=== PATIENT | female | born 1990 | race Caucasian/White ===

== ENCOUNTER 2022-06-18 22:42 | Observation (INO) | payer OTHER, SELFPAY ==
--- NOTE | ~2022-06-18 | CT_ITS ---
EXAMINATION: CT abdomen pelvis wo con DATE: 06/18/2022 23:58 INDICATION: Upper abdominal and right flank pain TECHNIQUE: Computed tomography (CT) of the abdomen and pelvis was performed without intravenous contr ast. The dose-length product (DLP) was 718.87 mGy-cm. Automated exposure control and iterative recons truction technique were employed. COMPARISON: None FINDINGS: The lung bases are clear. The heart size is normal. The gallbladder is surgically absent. T he liver, spleen, pancreas, and adrenal glands are normal. Nonobstructing stones of the right kidney measure 2 mm and 3 mm. The left kidney is unremarkable. No stones are present in the ureters or bladd er. There is no hydronephrosis or hydroureter. No pathologically enlarged abdominal or pelvic lymph n odes are identified. There is no free intraperitoneal gas or evidence of bowel obstruction. The appen [place] is normal. IMPRESSION: 1. Nonobstructing right nephrolithiasis. Reviewed, dictated and finalized at location B. [facility]
[2022-06-18 22:44] VITALS: BP 107/75; PULSE 73; RESP 20; TEMP 36; O2SAT 100
[2022-06-18] MEDS: SODIUM CHLORIDE 0.9% IV 1,000 ML 999 ML IV CONT (23:09)
[2022-06-18] MEDS: PANTOPRAZOLE SODIUM IV 40 MG VIAL IV PUSH (23:10)
--- NOTE | 2022-06-18 23:12 | PC.NURSE ---
ERP orders 4mg of zofran IV push. Pt just received 4mg of Zofran by EMS just prior to arrival and RN reported to ERP asking to hold the medication. ERP agreed. Pt also states that her pain is starting to reduce and rates the pain at 4/10.
[2022-06-18 23:30] VITALS: BP 112/75; PULSE 70; RESP 16; O2SAT 100
[2022-06-18 23:30] LABS: Basophils Absolute Auto 0.04 K/mm3 (0.00-0.10); Basophils Percent Auto 0.3 % (0.0-1.0); Eosinophils Percent Auto 0.9 % (1.0-6.0); Hematocrit 38.1 % (35.0-49.0); Hemoglobin 13.6 g/dL (12.0-15.0); Immature Granulocyte Absolute 0.04 K/mm3 (0.00-0.00); Immature Granulocyte Percent A 0.3 % (0.0-0.0); Lymphocytes Absolute Auto 2.32 K/mm3 (1.10-4.50); Mean Corpuscular HGB Conc 35.7 g/dL (32.0-36.0); Mean Corpuscular Hemoglobin 32.2 pg (27.0-31.0); Mean Corpuscular Volume 90.1 fL (78.0-102.0); Mean Platelet Volume 10.1 fl (9.2-11.8); Neutrophils Absolute Auto 8.4 K/mm3 (1.7-7.2); Neutrophils Percent Auto 72.5 % (50.0-70.0); Platelet Count Result 196 K/mm3 (150-420); Red Blood Count 4.23 M/mm3 (4.20-5.40); Red Cell Distribution Width 12.1 % (11.6-14.4); White Blood Count 11.6 K/mm3 (4.8-10.8)
--- NOTE | 2022-06-18 23:34 | PC.NURSE ---
Pt states that she has a history of her gallbladder surgery in 2019. Pt states that she had it removed and that pain feels similar to that episode.
[2022-06-18 23:42] LABS: SPREG INTERNAL CONTROL Positive; Serum Qual hCG Negative
[2022-06-18 23:46] LABS: Alanine Aminotransferase 57 U/L (14-59); Albumin Level 3.5 g/dL (3.4-5.0); Alkaline Phosphatase 58 U/L (46-116); Anion Gap 10 mmol/L (8-16); Aspartate Amino Transferase 80 U/L (15-37); Bilirubin,Total 0.6 mg/dL (0.00-1.00); Blood Urea Nitrogen 19 mg/dL (7-18); Calcium 8.2 mg/dL (8.5-10.1); Carbon Dioxide 24 mmol/L (21-32); Chloride 104 mmol/L (98-108); Estimated CRCL calculation 72 ml/min; Estimated Glomerular Filt Rate 60; Glucose 111 mg/dL (70-99); Lipase 588 U/L (73-393); Osmolality Calculated 289 mOsm/kg (285-295); Potassium 3.5 mmol/L (3.5-5.1); Sodium 138 mmol/L (136-145); Total Protein 6.4 g/dL (6.4-8.2)
[2022-06-18 23:51] LABS: Add Urine Microscopic? YES; Appearance Urine Clear (Clear); Bilirubin Urine Negative (Negative); Blood Urine Negative (Negative); Color Urine Yellow (Yellow); Glucose Urine UA Negative (Negative); Ketones Urine Trace (Negative); Leukocyte Esterase Ur Negative LEU/UL (Negative); Nitrate Urine Negative (Negative); Protein Urine Negative (Negative)
[2022-06-18 23:51] LABS: Lactic Acid Reflex 2.8 mmol/L (0.4-2.0)
[2022-06-18 23:57] LABS: Bacteria Urine Trace /hpf; Mucus Urine Few /lpf; RBC Urine 0-2 /hpf (0-2); Squamous Epithelial Cell Urine Few /hpf (Few); WBC Urine 0-3 /hpf (0-3)
[2022-06-19 00:27] VITALS: BP 106/74; PULSE 83; RESP 16; O2SAT 100
--- NOTE | 2022-06-19 01:08 | PC.NURSE ---
Pt was educated by ERP for the possibility of an admission to the floor. After discussing, pt has decided to agree with the admission. Pt did ask for food by was educated that pt would by NPO at this time. Reported to ERP.
--- NOTE | 2022-06-19 01:54 | ED.ABDPAIN ---
HPI - Abdominal Pain General Chief Complaint: Abdominal Pain Stated Complaint: ambulance Time Seen by Provider: 06/18/22 22:45 Source: patient, family and RN notes reviewed Mode of arrival: ambulatory Limitations: no limitations History of Present Illness MD elicited complaint: abdominal pain Pertinent past history: none Onset (ago): hour(s) (4) Pain Consistency: constant Location: epigastric Severity: mild Pain scale (0-10): 6 Quality: cramping and aching Radiation: back Migration to: no migration Exacerbating factors: nothing Relieving factors: nothing Context: confirms recent antibiotic use Associated symptoms: nausea and vomiting Treatments prior to arrival: prescription analgesics Related Data Patient : No Home Medications Medication Instructions Recorded Confirmed acetaminophen 300 mg-codeine 60 mg 1 tablet PO DIRECTED 06/18/22 06/18/22 tablet clindamycin HCl 300 mg capsule 300 mg PO DIRECTED 06/18/22 06/18/22 Allergies Allergy/AdvReac Type Severity Reaction Status Date / Time Penicillins Allergy Intermediate Unknown Verified 06/18/22 23:00 Review of Systems Review of Systems: All systems reviewed & are unremarkable except as noted in HPI and below Constitutional: Constitutional: Reports no additional constitutional complaints Eyes: Eyes: Reports no additional eye complaints ENT: Reports system reviewed and no additional complaints, except as documented Cardiovascular: Cardiovascular: Reports no additional cardiovascular complaints Respiratory: Respiratory: Reports no additional respiratory complaints Gastrointestinal: Gastrointestinal: Reports abdominal pain, Reports nausea and Reports vomiting Genitourinary: Genitourinary: Reports no additional female genitourinary complaints Musculoskeletal: Musculoskeletal: Reports no additional musculoskeletal complaints Integumentary/Breasts: Skin/Breast: Reports system reviewed and no additional complaints, except as docu Neurologic: Reports system reviewed and no additional complaints, except as documented Psychiatric: Psychiatric: Reports no additional psychiatric complaints Endocrine: Endocrine: Reports no additional endocrine complaints Hematologic/Lymphatic: Hematologic/Lymphatic: Reports no additional hematologic/lymphatic complaints Allergic/Immunologic: Allergic/Immunologic: Reports no additional allergic/immunologic complaints [facility] Past Medical History Medical History Nicotine dependence Overweight Pancreatitis Surgical History Surgical History History of laparoscopic cholecystectomy Family History Family History Father Acute myocardial infarction Social History Social History Smoking status: Former smoker Tobacco type: cigarettes Exam Const: General: no acute distress and well nourished; No healthy appearing Nutritional Appearance: well nourished Orientation/consciousness: patient oriented x3 Limitations: no limitations HENMT: Head: normal to inspection Ears: external ears normal, TM's normal bilaterally and EAC's normal Face/Nose/Sinus: Normal external nose present, Normal nares present, normal facial exam and sinuses nontender Face and sinus: normal facial exam and sinuses nontender Mouth: Yes Normal oral and palatal mucosa present and Yes moist mucous membranes Teeth and gingiva: dentition normal Throat: posterior oropharynx normal Eyes: Conjunctivae: conjunctivae normal Pupils: Equal, round and reactive pupils present EOM: EOMs intact bilaterally Neck: Neck: normal visual inspection, no lymphadenopathy and no meningeal signs Chest: Chest palpation & inspection: normal inspection of the chest Resp: Effort & Inspection: normal respiratory effort Auscultation: clear to a
[2022-06-19 02:07] VITALS: BP 122/82; PULSE 83; RESP 16; TEMP 36.3; O2SAT 100
[2022-06-19 02:27] VITALS: BMI 35.2
--- NOTE | 2022-06-19 02:30 | ADMGEN ---
This patient, Bernie Hernandez, was admitted to 2nd Floor Room 208-2. Patient/family oriented to hospital policies and general routines including ID bracelet, bed and alarms, visiting hours, pain management, procedures, bathroom and other care routines, personal items, smoking policy, room service/diet, and visiting hours. Information on how to activate the Rapid Response Team has been discussed. Patient/Family are encouraged to report perceived risks to care and to ask questions if they do not understand what they are told or what they should do.
[2022-06-19 02:53] LABS: Reflex Lactic Acid Yes or No Add Lactic
[2022-06-19 03:00] VITALS: BP 106/68; PULSE 79; RESP 18; TEMP 36.6; O2SAT 99
[2022-06-19] MEDS: SODIUM CHLORIDE 0.9% IV 1,000 ML 125 ML IV CONT (03:28)
[2022-06-19] MEDS: MORPHINE SULFATE (*CRX) 2 MG/ML INJ IV PUSH (03:39)
[2022-06-19 05:22] LABS: Basophils Absolute Auto 0.02 K/mm3 (0.00-0.10); Basophils Percent Auto 0.2 % (0.0-1.0); Eosinophils Absolute Auto 0.07 K/mm3 (0.02-0.50); Eosinophils Percent Auto 0.8 % (1.0-6.0); Hematocrit 39.3 % (35.0-49.0); Hemoglobin 13.7 g/dL (12.0-15.0); Immature Granulocyte Absolute 0.03 K/mm3 (0.00-0.00); Immature Granulocyte Percent A 0.3 % (0.0-0.0); Lymphocytes Absolute Auto 2.05 K/mm3 (1.10-4.50); Lymphocytes Percent Auto 22.6 % (18.0-42.0); Mean Corpuscular HGB Conc 34.9 g/dL (32.0-36.0); Mean Corpuscular Hemoglobin 31.8 pg (27.0-31.0); Mean Corpuscular Volume 91.2 fL (78.0-102.0); Mean Platelet Volume 10.4 fl (9.2-11.8); Monocytes Absolute Auto 0.68 K/mm3 (0.10-0.90); Monocytes Percent Auto 7.5 % (2.0-11.0); Neutrophils Absolute Auto 6.2 K/mm3 (1.7-7.2); Neutrophils Percent Auto 68.6 % (50.0-70.0); Platelet Count Result 204 K/mm3 (150-420); Red Blood Count 4.31 M/mm3 (4.20-5.40); Red Cell Distribution Width 12.1 % (11.6-14.4); White Blood Count 9.1 K/mm3 (4.8-10.8)
[2022-06-19] MEDS: CLINDAMYCIN HCL 150 MG CAP 300 MG PO (06:02)
[2022-06-19 06:22] LABS: Lactic Acid 1.3 mmol/L (0.4-2.0)
[2022-06-19 08:00] VITALS: BP 94/56; PULSE 64; RESP 16; TEMP 36.2; O2SAT 98
[2022-06-19 08:20] LABS: Alanine Aminotransferase 426 U/L (14-59); Albumin Level 3.5 g/dL (3.4-5.0); Alkaline Phosphatase 79 U/L (46-116); Anion Gap 8 mmol/L (8-16); Aspartate Amino Transferase 444 U/L (15-37); Bilirubin,Total 0.6 mg/dL (0.00-1.00); Blood Urea Nitrogen 15 mg/dL (7-18); Carbon Dioxide 24 mmol/L (21-32); Chloride 108 mmol/L (98-108); Estimated CRCL calculation 92 ml/min; Estimated Glomerular Filt Rate > 60; Glucose 119 mg/dL (70-99); Osmolality Calculated 291 mOsm/kg (285-295); Potassium 4.2 mmol/L (3.5-5.1); Sodium 140 mmol/L (136-145); Total Protein 6.6 g/dL (6.4-8.2)
[2022-06-19] MEDS: lisinopriL 20 MG TABLET PO (09:05)
--- NOTE | 2022-06-19 10:27 | PM.SD2 ---
Same Day Admit/Disch: HPI History of Present Illness Chief complaint: ACUTE PANCREATITIS Narrative: Bernie Hernandez is a 31 year old female Chief Complaint: Abdominal Pain Stated Complaint: ambulance Time Seen by Provider: 06/18/22 22:45 Source: patient, family and RN notes reviewed Mode of arrival: ambulatory Limitations: no limitations History of Present Illness MD elicited complaint: abdominal pain Pertinent past history: none Onset (ago): hour(s) (4) Pain Consistency: constant Location: epigastric Severity: mild Pain scale (0-10): 6 Quality: cramping and aching Radiation: back Migration to: no migration Exacerbating factors: nothing Relieving factors: nothing Context: confirms recent antibiotic use Associated symptoms: nausea and vomiting Treatments prior to arrival: prescription analgesics Related Data Patient : No Home Medications PMFSH Past Medical History Medical History Nicotine dependence Overweight Pancreatitis Surgical History Surgical History History of laparoscopic cholecystectomy Family History Family History Father Acute myocardial infarction Social History Social History Years smoked: 15 Smoking status: Current every day smoker Tobacco type: cigarettes Alcohol intake: current Drinks per week: 10 Substance use: current Substance use type: marijuana Last use: 06/18/2022 Lack of Transportation: No Lack of Food: Often True Current Housing: I Have Housing Concerned About Future Housing: No Difficulty Paying Gas/Electric Bills: YES Difficulty Paying for Meds: No Currently Unemployed: No Education: Associate Degree Difficulty w/ Childcare or Family Care: No Spiritual care concerns: No Same Day Admit/Disch: Med Pre-admit Medications Home Medications Medication Instructions Recorded Confirmed Type lisinopril 20 mg tablet 20 mg PO DAILY #90 tabs 06/03/22 06/18/22 Rx acetaminophen 300 mg-codeine 60 mg 1 tablet PO DIRECTED 06/18/22 06/18/22 History tablet clindamycin HCl 300 mg capsule 300 mg PO DIRECTED 06/18/22 06/18/22 History ondansetron 4 mg disintegrating 4 mg PO Q8H PRN nausea and 06/19/22 Rx tablet vomiting #10 tabs tramadol 50 mg tablet 50 mg PO Q6H PRN pain #14 tabs 06/19/22 Rx Exam Narrative: GENERAL:Well-appearing, well-nourished, and in no acute distress. HEAD:Normocephalic, atraumatic. EYES: PERRLA ENT: Nares clear, no rhinorrhea or epistaxis. Mucous membranes moist. CHEST: Clear to auscultation. No respiratory distress. HEART: Regular rate and rhythm. . Normal peripheral pulses. ABDOMEN: Soft, nontender, nondistended, normal active bowel sounds. EXTREMITIES: Normal range of motion. No edema. SKIN: Warm, dry, no rash. NEURO: No focal deficits. Alert and oriented x3. no pain or nausea noted at this time DS: Data Data Completed and Pending Labs on day of discharge: Labs from last 24 hours 06/19/22 06/19/22 06/19/22 04:56 04:56 04:56 WBC 9.1 RBC 4.31 Hgb 13.7 Hct 39.3 MCV 91.2 MCH 31.8 H MCHC 34.9 RDW 12.1 Plt Count 204 MPV 10.4 Immature Gran % (Auto) 0.3 H Neut % (Auto) 68.6 Lymph % (Auto) 22.6 [place] % (Auto) 7.5 Eos % (Auto) 0.8 L Baso % (Auto) 0.2 Lymph # (Auto) 2.05 [place] # (Auto) 0.68 Eos # (Auto) 0.07 Baso # (Auto) 0.02 Abs Immat Gran (auto) 0.03 H Absolute Neuts (auto) 6.2 Absolute Nucleated RBC 0.00 Nucleated RBC % 0.0 Sodium 140 Potassium 4.2 Chloride 108 Carbon Dioxide 24 Anion Gap 8 BUN 15 Creatinine 0.84 Estim Creat Clear Calc 92 Estimated GFR > 60 Glucose 119 H Calculated Osmolality 291 Lactic Acid 1.3 Calcium 8.0 L Total Bilirubin
--- NOTE | 2022-06-19 11:47 | PC.NURSE ---
Pt discharged to home. Denies N/V or abdominal pain. Pt has drank apple juice and water with out difficulty. Pt instructed regarding medications, diet and follow up appointment with her PCP. Pt taken by WC to family car and assisted into the vehicle.
--- NOTE | 2022-06-24 09:32 | PC.NURSE ---
Unable to contact for discharge call back.
== END 2022-06-19 11:30 | disposition home or self-care (01) ==
LOC: CHSED 23:14 → CHS2ND 06-19 02:10
PROVIDERS: Nurse Practitioner Family; Admitting Provider Internal Medicine; Emergency Provider Emergency Medicine; Visit Provider Internal Medicine
DX: K85.90 Acute pancreatitis without necrosis or infection, unspecified (principal); F17.210 Nicotine dependence, cigarettes, uncomplicated; Z90.49 Acquired absence of other specified parts of digestive tract
CPT/HCPCS: 36415; 74176; 80053; 81001; 83605; 83690; 84703; 85025; 96361; 96374; 96375; 99285; A9270; C9113; G0378; G0379; J2270; J7030

== ENCOUNTER 2023-07-25 09:18 | Outpatient (CLI) | payer BC, SELFPAY ==
[2023-07-25 09:37] LABS: Basophils Absolute Auto 0.04 K/mm3 (0.00-0.10); Basophils Percent Auto 0.7 % (0.0-1.0); Eosinophils Absolute Auto 0.07 K/mm3 (0.02-0.50); Eosinophils Percent Auto 1.2 % (1.0-6.0); Hematocrit 43.1 % (35.0-49.0); Hemoglobin 14.9 g/dL (12.0-15.0); Immature Granulocyte Absolute 0.02 K/mm3 (0.00-0.00); Immature Granulocyte Percent A 0.3 % (0.0-0.0); Lymphocytes Absolute Auto 1.59 K/mm3 (1.10-4.50); Lymphocytes Percent Auto 26.2 % (18.0-42.0); Mean Corpuscular HGB Conc 34.6 g/dL (32.0-36.0); Mean Corpuscular Hemoglobin 32.2 pg (27.0-31.0); Mean Corpuscular Volume 93.1 fL (78.0-102.0); Mean Platelet Volume 9.7 fl (9.2-11.8); Monocytes Absolute Auto 0.47 K/mm3 (0.10-0.90); Monocytes Percent Auto 7.8 % (2.0-11.0); Neutrophils Absolute Auto 3.9 K/mm3 (1.7-7.2); Neutrophils Percent Auto 63.8 % (50.0-70.0); Platelet Count Result 209 K/mm3 (150-420); Red Blood Count 4.63 M/mm3 (4.20-5.40); Red Cell Distribution Width 12.7 % (11.6-14.4); White Blood Count 6.1 K/mm3 (4.8-10.8)
[2023-07-25 10:06] LABS: Alanine Aminotransferase 24 U/L (14-59); Albumin Level 3.9 g/dL (3.4-5.0); Alkaline Phosphatase 51 U/L (46-116); Anion Gap 4 mmol/L (8-16); Aspartate Amino Transferase 10 U/L (15-37); Bilirubin,Total 0.4 mg/dL (0.00-1.00); Blood Urea Nitrogen 15 mg/dL (7-18); Carbon Dioxide 32 mmol/L (21-32); Chloride 102 mmol/L (98-108); Estimated Glomerular Filt Rate > 60; Glucose 93 mg/dL (70-99); Lipase 30 U/L (16-77); Osmolality Calculated 286 mOsm/kg (285-295); Potassium 4.4 mmol/L (3.5-5.1); Sodium 138 mmol/L (136-145); Total Protein 6.8 g/dL (6.4-8.2)
[2023-07-25 10:16] LABS: CRP < 0.5 mg/dL (0.0-0.9)
[2023-07-27 21:58] LABS: H pylori, Urea Breath NOT DETECTED (NOT DETECTED)
== END 2023-07-25 09:19 | disposition home or self-care (01) ==
LOC: CHSLAB 09:19
PROVIDERS: PCP Family Medicine; Visit Provider Family Medicine
DX: R10.9 Unspecified abdominal pain (principal); K85.90 Acute pancreatitis without necrosis or infection, unspecified
CPT/HCPCS: 36415; 80053; 83013; 83690; 85025; 86140

== ENCOUNTER 2024-10-06 22:19 | Emergency (ER) | payer BC, OTHER, SELFPAY ==
--- OUTSIDE RECORDS SUMMARY | 2024-10-06 22:21 | XMS_ITS | Clinical Summary ---
Author Organization [facility] Address [address] [place] [address] Care Team Providers Care Embroidery Cutter Name Role Phone Maida Marie MD Primary Care Provider [phone] Source Comments [facility],non-owned Affiliates and Associated Physician Practices is amultiple site organization consisting of ambulatory clinics and hospital sitesin [place], [place], [place] and [place]. This disclosure is being madepursuant to the Care Everywhere program and may not contain all information available regarding this patient. Last updated 18.[facility] Allergies Active Allergy Reactions Criticality Noted Date Comments Latex Rash Medium 07/29/2018 Penicillins Rash Medium 07/29/2018 Dx in childhood Medications * Be aware that medications may not be up to date on this document. Alwaysverify current medications with the patient. Medication Sig Dispensed Refills Start Date End Date Status Wuyocfry-Xbg-Ku-FA ( VITAMIN WITH IRON) tabletIndications:Pr egnancy Take 1 tablet by mouth once daily Reasons: Active Aspirin 81 MG Take 2 tablets by mouth once daily 60 tablet 2 08/26/2018 Active Active Problems Problem Noted Date Diagnosed Date Right upper quadrant pain 09/23/2018 Overview (10/02/2018): Mild and intermittent, not associated with nausea/vomiting, eating. Reports having this same discomfort on occasion prior to , states this discomfort is unchanged since her last labs were assessed. Prior ALT elevation of 56, most recent CMP on 07/17/18 shows ALT of 34 (wnl), AST of 17, bili of 0.3, creatinine of 0.5. Plan: RUQ ultrasound ordered on 09/23 Labs from 09/28 CMP- WNL Hepatitis Panel- NR hydronephrosis during , antepartu m 08/26/2018 Overview (09/23/2018): 08/26/18 US- Left measures 5.5mm Hypertension affecting 07/24/2018 Overview (08/26/2018): Diagnosed at 13 week visit: 146/92, PN records state that repeat BP was 140/80, same day assessment. No further BPs available to review. Lab summary from 07/11/18: H/H/P: 12.6/34.6/195 ALT: 56 (elevated) AST: 25, bili: 0.5, creatinine: 0.5 Baseline 24 urine: 1800 mL urine, protein too low to calculate. Lab summary from 07/17/18: ALT: 34, AST: 17, bili: 0.3, creatinine: 0.5, Uric acid: 5.7 H/H/P: 12.7/37.6/197 Plan: Aspirin--36 weeks Serial growth every 4 weeks Weekly 10 point biophysical profile starting at 32 weeks Delivery initiation at 39 weeks Recommend weight reduction Supervision of high-risk of michelet villagran 07/24/2018 Overview (10/02/2018): Summary: Dating: LMP within 6 days of 12w1d u/s with CRL of 6.72cm giving ALYSA -->12/16/18 A+/Imm/-/- HIV NR CT/GC/Trich: all negative 28 week labs- 12.3/35.7 HIV NR/RPR NR GCT 118 Obesity (BMI 30.0-34.9) 07/24/2018 Family History Medical History Relation Name Comments Cancer - Bladder Maternal Grandfather Diabetes - Type 2 Maternal Grandmother Immunodeficiency Other FOB mother Diabetes - Type 2 Paternal Grandfather CAD (Coronary Artery Disease) Paternal Grandmother Relation Name Status Comments Father Alive Maternal Grandfather Alive Maternal Grandmother Mother Alive Other FOB mother Alive Factor V Paternal Grandfather Alive Paternal Grandmother Social History Tobacco Use Types Packs/Day Years Used Date Smoking Tobacco: Never Smokeless Tobacco: Never Alcohol Use Standard Drinks/Week Comments No 0 (1 standard drink = 0.6 oz pur e alcohol) Sex and Gender Information Value Date Recorded Sex Assigned at Not on file Gender Identity Not on file Sexual Orientation Not on file Last Filed Vital Signs Vital Sign Reading Time Taken Comments Blood Pressure 136/84 09/23/2018 10:08 AM STUDY ABROAD COORDINATOR Pulse 92 09/23/2018 10:08 AM STUDY ABROAD COORDINATOR Temperature - - Respiratory Rate - - Oxygen Saturation - - Inhaled Oxygen Concentration - - Weight 98.4 kg (217 lb) 09/23/2018 10:08 AM STUDY ABROAD COORDINATOR Height 160 cm (5' 3 ) 09/23/2018 10:08 AM STUDY ABROAD COORDINATOR Body Mass Index 38.44 09/23/2018 10:08 AM STUDY ABROAD COORDINATOR Plan of Treatment Health Maintenance Due Date Last Done Comments PAP SMEAR 1992 HIV SCREENING 2007 HEPATITIS C SCREENING 06/24/2010 DTAP/TDAP/TD VACCINES (1 - Tdap) 2011 HEPATITIS B VACCINE (1 of 3 - 19+ 3-dose series) 2011 COVID-19 VACCINE ( - 2023-2 5 season) 2024 INFLUENZA VACCINE (#1) 2024 DEPRESSION SCREENING 08/11/2024 ZOSTER VACCINE (1 of 2) 2042 HIB VACCINE Aged Out No longer eligi ble based on patient's age to complete this topic HPV VACCINE Aged Out No longer eligi ble based on patient's age to complete this topic MENINGOCOCCAL (Group B) VACCINE Aged Out No longer eligible based on patient's age to complete this topic MENINGOCOCCAL VACCINE Aged Out No dimple kacy eligible based on patient's age to complete this topic PNEUMOCOCCAL VACCINE Aged Out No long er eligible based on patient's age to complete this topic Care Teams Embroidery Cutter Relationship Specialty Start Date End Date Maida Marie MD [address] [place] [id number] PCP - General Family Medicine 07/14/18
--- OUTSIDE RECORDS SUMMARY | 2024-10-06 22:21 | XMS_ITS | Referral Summary ---
Author Organization [facility] Address [address] [place] [address] Care Team Providers Care Supervisor Ore Dressing Name Role Phone Maida Marie MD Primary Care Provider [phone] Source Comments [facility],non-owned Affiliates and Associated Physician Practices is amultiple site organization consisting of ambulatory clinics and hospital sitesin [place], [place], [place] and [place]. This disclosure is being madepursuant to the Care Everywhere program and may not contain all information available regarding this patient. Last updated 18.[facility] Allergies Active Allergy Reactions Criticality Noted Date Comments Latex Rash Medium 07/29/2018 Penicillins Rash Medium 07/29/2018 Dx in childhood Medications * Be aware that medications may not be up to date on this document. Alwaysverify current medications with the patient. Medication Sig Dispensed Refills Start Date End Date Status Fcvtzhza-Twy-Om-FA ( VITAMIN WITH IRON) tabletIndications:Pr egnancy Take [...] NR GCT 118 Obesity (BMI 30.0-34.9) 07/24/2018 Social History Tobacco Use Types Packs/Day Years [...] Comments Blood Pressure 136/84 09/23/2018 10:08 AM SAMPLE CASE PORTER Pulse 92 09/23/2018 10:08 AM SAMPLE CASE PORTER Temperature - - Respiratory Rate - - Oxygen Saturation - - Inhaled Oxygen Concentration - - Weight 98.4 kg (217 lb) 09/23/2018 10:08 AM SAMPLE CASE PORTER Height 160 cm (5' 3 ) 09/23/2018 10:08 AM SAMPLE CASE PORTER Body Mass Index 38.44 09/23/2018 10:08 AM SAMPLE CASE PORTER Plan of Treatment Not on file Care Teams Supervisor Ore Dressing Relationship Specialty Start Date End Date Maida Marie MD [address] [place] [id number] PCP - General Family Medicine 07/14/18
--- OUTSIDE RECORDS SUMMARY | 2024-10-06 22:21 | XMS_ITS | Data Portability ---
Author Organization [facility] [place] Address [address] [place] [address] Assessment Encounter Date Assessment Date Assessment LastModified by Organization Details LastModified Time 12/27/2022 12/27/2022 Annual gynecological exam performed. Patient will come back in a year unless there are new symptoms. Not available 12/27/2022 14:25:15 Plan of Treatment Reminders Order Date Submit Date Provider Last Modified By Organization Details Last Modified Time Details Appointments None record ed. Lab None record ed. Referral None record ed. Procedures None record ed. Surgeries None record ed. Imaging None record ed. Medication Orders None record ed. Patient TargetsNo targets recorded. Patient InstructionsNo instructions recorded. Reason for Referral None Reported. Problems Name Problem SNOMED Code Status Onset Date Resolution Date Notes Provider Name and Address Organization Details Recorded Time Hypertens ion in the obstetric context Active 2018 Pre-exist ing essential hypertens ion complicat ing childbirt h;Practic e ID: 0001 Not Available [facility] 0 17:55:44 Trauma to perineum and/or vulva during delivery 588516807 Active 2018 Other specified trauma to perineum and vulva;Pra ctice ID: 0001 Not Available [facility] 0 17:55:44 Single live 504419302 Active 2018 Single live ;Pra ctice ID: 0001 Not Available [facility] 0 17:55:45 Gestation period, 38 weeks 20465775 Active 2018 38 weeks gestation of ;Practice ID: 0001 Not Available [facility] 0 17:55:45 Non-prote inuric hypertens ion of 707424859 Active 2018 Gestatnl htn without significa nt protein, comp the puerp;Pra ctice ID: 0001 Not Available [facility] 0 17:55:45 Lochia finding Active 2018 Encounter for routine postpartu m follow-up ;Practice ID: 0001 Not Available [facility] 0 17:55:45 Gestation period, 37 weeks 90972226 Active 2018 37 weeks gestation of ;Recorded Elsewhere : No Locati on: [facility] So [facility]ce: EHR Chron ic: N Practic e ID: 0001 Bill able Time: 09:30:00 AM Not Available [facility] 0 17:55:45 detection examinati on Active 2017 Encounter for test, result positive; Recorded Elsewhere : No Locati on: [facility] So urce: EHR Chron ic: N Practic e ID: 0001 Bill able Time: 08:45:00 AM Not Available [facility] 0 17:55:45 Gestation period, 17 weeks 69914924 Active 2017 17 weeks gestation of ;Recorded Elsewhere : No Locati on: [facility] So urce: EHR Chron ic: N Practic e ID: 0001 Bill able Time: 01:00:00 PM Not Available [facility] 0 17:55:45 Normal in multigrav logan 10680952852 4106 Active 2018 Encounter for suprvsn of normal , third trimester ;Recorded Elsewhere : No Locati on: [facility] So urce: EHR Chron ic: N Practic e ID: 0001 Bill able Time: 10:00:00 AM Not Available [facility] 0 17:55:45 Gestation period, 33 weeks 75762917 Active 2018 33 weeks gestation of ;Recorded Elsewhere : No Locati on: [facility] So urce: EHR Chron ic: N Practic e ID: 0001 Bill able Time: 10:30:00 AM Not Available [facility] 0 17:55:45 Gestation period, 32 weeks 8474193 Active 2018 32 weeks gestation of ;Recorded Elsewhere : No Locati on: [facility] So urce: EHR Chron ic: N Practic e ID: 0001 Bill able Time: 10:30:00 AM Not Available [facility] 0 17:55:45 Hypertens ion in the obstetric context Active 2018 Pre-exist ing essential htn comp , third trimester ;Recorded Elsewhere : No Locati on: [facility] So urce: EHR Chron ic: N Practic e ID: 0001 Bill able Time: 02:00:00 PM Not Available [facility] 0 17:55:45 Gestation period, 36 weeks 14770653 Active 2018 36 weeks gestation of ;Recorded Elsewhere : No Locati on: [facility] So urce: EHR Chron ic: N Practic e ID: 0001 Bill able Time: 09:30:00 AM Not Available [facility] 0 17:55:45 Specializ ed medical examinati on Active 2010 Routine gynecolog ical examinati on;Practi ce ID: 0001 Not Available [facility] 0 17:55:45 Amenorrhe a 15453496 Active 2010 AMENORRHE A;Practic e ID: 0001 Not Available [facility] 0 17:55:46 Routine care Active 2010 Supervisi on of other normal ;Practice ID: 0001 Not Available [facility] 0 17:55:46 test negative 354349564 Active 2010 Negative Test;Prac jo ann ID: 0001 Not Available [facility] 0 17:55:46 Screening for malignant neoplasm of cervix Active 2011 Pap Smear;Pra ctice ID: 0001 Not Available [facility] 0 17:55:[address] Concept Active 2015 Encntr for second steward exam (general) (routine) w/o abn findings; Practice ID: 0001 Not Available [facility] 0 17:55:46 Secondary amenorrhe a 031380562 Active 2017 Secondary amenorrhe a;Practic e ID: 0001 Not Available [facility] 0 17:55:46 screening Active 2017 Encounter for screening for nuchal transluce ncy;Pract ice ID: 0001 Not Available [facility] 0 17:55:47 , childbirt h and puerperiu m finding Active 2018 Encntr for suprvsn of normal first preg, third trimester ;Practice ID: 0001 Not Available [facility] 0 17:55:48 Gestation period, 35 weeks 43417211 Active 2018 35 weeks gestation of ;Practice ID: 0001 Not Available [facility] 0 17:55:[address] Concept Active 2018 Matern care for abnlt fetl hrt rate or rhym, 3rd tri, unsp;Prac jo ann ID: 0001 Not Available [facility] 0 17:55:[address] Concept Active 2015 Encntr for general adult medical exam w/o abnormal findings; Recorded Elsewhere : No Locati on: [facility] So urce: EHR Chron ic: N Practic e ID: 0001 Bill able Time: 10:30:00 AM Not Available [facility] 0 17:55:51 Gestation period, 20 weeks 24628846 Active 2017 20 weeks gestation of ;Recorded Elsewhere : No Locati on: [facility] So urce: EHR Chron ic: N Practic e ID: 0001 Bill able Time: 08:30:00 AM Not Available [facility] 0 17:55:52 Pain Active 2018 Upper abdominal pain, unspecifi ed;Record ed Elsewhere : No Locati on: [facility] So urce: EHR Chron ic: N Practic e ID: 0001 Bill able Time: 09:00:00 AM Not Available [facility] 0 17:55:53 Problem Notes None recorded. Procedures Surgical History Date Name Laterality Status Provider Name and Address Organization Details Recorded Time 02/03/20 19 Cholecystectomy completed Carolyn Eliezer [facility] 12/27/2022 14:34:59 09/03/19 18 Date of Last Pap Smear completed Carolyn Martnis [facility] 12/27/2022 14:30:02 Imaging Results None recorded. Procedure Notes None recorded. Medical Equipment None Reported. Allergies Allergen ID Allergen Name Allergen Category Reaction Reaction Severity Criticality Documentation Date Start Date Code Code System Note Provider Name and Address Organization Details Recorded Time 95193 Product containin g penicilli n (product) medicatio n Not available Not available Not available 07/28/2020 84014 8001 SNOMED Comme nt: Locat ion: [facility]; Not Available [facility] 0 14:20:43 Medications Name Sig Start Date Stop Date Status Note LastModified by Organization Details LastModified Time labetalol 200 mg tablet take 1 tablet by oral route 2 times every day 12/27 completed Prescrib ed Elsewher e: Yes Loca tion: [facility] By: [email or web address] Encount er DateTime : 01/01/20 09:00:00 AM Not Available Not Available Not Available clindamyc in HCl 300 mg capsule 12/27 completed Not Available Not Available Not Available hydrocodo ne 5 mg-acetam inophen 325 mg tablet 12/27 completed Not Available Not Available Not Available lisinopri l 20 mg tablet active Not Available Not Available Not Available prednison e 20 mg tablet TAKE 3 TABLETS BY MOUTH DAILY FOR 3 DAYS, 2 TABLETS DAILY FOR 3 DAYS, THEN 1 TABLET DAILY FOR 3 DAYS active Not Available Not Available No t Available tramadol 50 mg tablet 12/27 completed Not Available Not Available Not Available Microgest in FE 08/30 (28) 1 mg-20 mcg (21)/75 mg (7) tablet take 1 tablet by oral route every day 06/04 completed Prescrib ed Elsewher e: No Locat ion: [facility]ify By: gilberto z Encoun ter DateTime : 09/03/19 18 08:45:00 AM Not Available Not Available Not Available Metrogel Vaginal 0.75 % (37.5 mg/5 gram) insert 1 applicat orful by vaginal route for 5 nights at bedtime 06/04 completed Prescrib ed Elsewher e: No Locat ion: [place] [facility] By: gilberto z Encoun ter DateTime : 05/03/20 16 03:30:31 PM Not Available Not Available Not Available triamcino lone acetonide 0.025 % topical cream APPLY TOPICALL Y TO AFFECTED AREA 2 TIMES PER DAY NEEDED FOR ITCHING active Not Available Not Available No t Available acetamino phen 300 mg-codein e 60 mg tablet 12/27 completed Not Available Not Available Not Available Vitamin D2 1,250 mcg (50,000 unit) capsule take 1 capsule by oral route every week 06/04 completed Prescrib ed Elsewher e: No [facility] By: gilberto z Encoun ter DateTime : 05/03/20 16 11:06:19 AM Not Available Not Available Not Available ondansetr on 4 mg disintegr ating tablet 12/27 completed Not Available Not Available Not Available cefdinir 300 mg capsule TAKE 1 CAPSULE BY MOUTH TWICE A DAY FOR 10 DAYS 12/27 completed Not Available Not Available Not Available NuvaRing 0.12 mg-0.015 mg/24 hr vaginal insert 1 vaginal ring by vaginal route every week continuo usly 12/27 completed Prescrib ed Elsewher e: No Locat ion: [facility] odify By: [email or web address] Encounte r DateTime : 01/01/20 09:00:00 AM Not Available Not Available Not Available Loestrin 24 Fe 1 mg-20 mcg (24)/75 mg (4) tablet take 1 tablet by oral route every day 05/01 completed Prescrib ed Elsewher e: No Locat ion: [facility] odify By: rashard Juárezou nter DateTime : 04/21/20 13 01:22:40 PM Not Available Not Available Not Available + DHA 28 mg iron-975 mcg-200 mg oral pack take 1 tablet by oral route every day 12/27 completed Prescrib ed Elsewher e: No Locat ion: [facility] odify By: gilberto z Encoun ter DateTime : 06/04/20 18 09:45:00 AM Not Available Not Available Not Available Vitals Date Recorded Body height Body mass index (BMI) Body weight Provider Name and Address Organization Details Last Updated DateTime 12/27/2022 160.02 cm 32.8 kg/m2 95805.59 g Carolyn Eliezer [facility] 12/27/2022 14:26:47 Date Recorded Systolic blood pressure Diastolic blood pressure Provider Name and Address Organization Details Last Updated DateTime 12/27/2022 122 mm[Hg] 80 mm[Hg] Mellissa Kinney, [facility]- [address], [place], [address], [facility] 12/27/2022 14:35:48 Social History Question Answer Notes LastModified by Organizat ion Details LastModified Time Tobacco Smoking Status Current Every Day Smoker Carolyn Eliezer [facility], [facility] 12/27/2022 14:34:44 What Is Your Level Of Alcohol Consumption? Occasional Information not available 12/27/2022 In The 14 Days Before Symptom Onset, Have You Had Close Contact With A Laboratory-confir med COVID-19 While That Case Was Ill? No Information not available 12/27/2022 In The 14 Days Before Symptom Onset, Have You Had Close Contact With A Person Who Is Under Investigation For COVID-19 While That Person Was Ill? No Information not available 12/27/2022 Have You Been To An Area Known To Be High Risk For COVID-19? No Information not available 12/27/2022 What Is Your Current Pack Years? 10packyears Information not available 12/27/2022 Have You Ever Been Counseled For Unhealthy Alcohol Use? No Information not available 12/27/2022 At What Age Did You Start Smoking Tobacco? 22 Information not available 12/27/2022 Do You Use Any Illicit Or Recreational Drugs? No Information not available 12/27/2022 Has Tobacco Cessation Counseling Been Provided? No Information not available 12/27/2022 How Many Years Have You Smoked Tobacco? 10 Information not available 12/27/2022 Do You Or Have You Ever Used Any Other Forms Of Tobacco Or Nicotine? No Information not available 12/27/2022 Sex: Unknown Functional Status None recorded. Mental Status None recorded. Family History Relationship Description Onset Age of this Age Resolved Age Notes LastModified by Organization Details LastModified Time Mother Anemia Not available 14:32:15 Maternal Grandmother Malignant tumor of breast Not available 2022 14:32:27 Maternal Grandmother Diabetes mellitus Not available 2022 14:33:06 Maternal Grandmother Hypercholest erolemia Not available 2022 14:33:49 Paternal Grandmother Heart disease Not available 2022 14:32:49 Paternal Grandmother Diabetes mellitus Not available 2022 14:33:06 Paternal Grandmother Hypercholest erolemia Not available 2022 14:33:49 Maternal Grandfather Diabetes mellitus Not available 2022 14:33:06 Maternal Grandfather Hypercholest erolemia Not available 2022 14:33:48 Paternal Grandfather Diabetes mellitus Not available 2022 14:33:06 Paternal Grandfather Hypertensive disorder Not available 2022 14:33:29 Paternal Grandfather Hypercholest erolemia Not available 2022 14:33:49 Father Hypertensive disorder Not available 2022 14:33:29 Notes:Father: High BP Matern al grandmother: Diabetes mellitus Medical History Condition Response Allergies (Food, seasonal, environmental ) N Other N Breast Cancer N Drug/Latex Allergies/Reactions N Blood Transfusion N Lung Disease N Dermatologic Disorders N Defects or Inherited Disease N Breast Problem N Gestational Diabetes N Hematologic disorders N Anesthesia Complications N History of STI N Deep Vein Thrombosis N Polycystic ovary syndrome N Anxiety Disorder N Autoimmune disease N Arthritis N Infertility N Polyps N Acid Reflux (GERD) N History of abnormal pap N Cancer N Stroke N Varicosities N Neurologic/Epilepsy N Endometriosis N High Cholesterol N Headaches N Fibromyalgia N Kidney Disease N Heart Problems N Kidney or Bladder Problems N Thyroid Problems N GI Problems N Eating Disorder N Anemia N Art (IVF or FET) N Psychiatric Illness N Ovarian Cancer N Diabetes N Pulmonary (TB, Asthma) N Hepatitis/Liver Disease N No Past Medical History N Eczema N Urinary Tract Infection N Abuse/Domestic Violence N Asthma N Trauma/Violence N Depression/ depression N Heart Disease N Pre-Eclampsia N Hypertension Y Osteoporosis N Thrombophilias N Gynecological History Statement/Question Response Abnormal Pap N Flow Moderate Date of LMP 12/17/2022 Was last menstrual period normal Y STIs/STDs N Duration of Flow (days) 7 Current Control Method None Are cycles usually normal Y Frequency of Cycle (Q days) 28 Sexually Active? Y Menses Monthly Y Age of first menstrual cycle 13 Date of Last Pap Smear 09/03/2017 Sexual Problems? N LMP Definite Obstetrics History GPAL:G 2 P 2 0 0 2 Type Value Full Term 2 Living 2 Total 2 Past Encounters Encounter ID Performer Location Encounter Start Date Encounter Closed Date Diagnosis/Indication Diagnosis SNOMED-CT Code Diagnosis ICD10 Code Diagnosis Note [id number] Mellissa Kinney , [facility] [address] [address] 12/27/2022 13:49:01 12/27/2022 15:24:43 Gynecologic examination 92883858 Z01.419 Take Calcium with Vitamin D 1200mg daily if not receiving in daily diet. It is strongly advised to have an annual flu shot and up can obtain at most pharmacies . If you have not had a TDap shot in the last 10 years you should obtain one as well. Discussed with patient & provided with informatio n regarding Gardisil vaccine to prevent the 4 strains for HPV that cause cervical cancer if under age 26. Encourage safe sexual practices, to use condoms and limit partners if not already in a monogamous relationsh ip. Do monthly self breast exams. Have mammogram yearly or every other year depending on family history. BRCA testing is now available for patients with strong genetic history of female cancer. If interested contact the office. Engage in daily exercise of low impact aerobic exercise 45-60 minutes 4-5 times weekly. Avoid tobacco and illicit drugs as well as using moderation with alcohol intake less than 1-2 8 oz beverages daily. This lifestyle behavior pattern will lead to less health conditions and longer life span. If BMI greater than 25 weight watchers or dietary consult advised. Patient received above instructio ns, and questions have been answered. If you have any questions please call or respond to this email. Patient was made aware of the patient portal and may obtain a paper copy of today's plan if desired. Pap/hpv sent STD Screen declined Genetic Screen discussed Colon Screen na Dexa Screen na Routine Labs PCPPCP treating her for poison gisele now.Will go to derm for yearly skin checks Health Concerns Section Related Observation LastModified by Organization Detai ls LastModified Time None Recorded Concern Status LastModified by Organization Details LastModified Time None Recorded Advance Directives Directive None Recorded Payers Encounter Date Sequence Insurance Name Policy Number Policy Jimenez Covered Member ID Jimenez Member ID Guarantor Name 12/27/2022 1 [facility] ON OR AFTER 02/08/21 (MEDICAID REPLACEMENT - HMO) Bernie Heltonkhardt [id number] Bernie David Notes Date Note Type Note Provider Name and Address Organization Details Recorded Time 12/27/2022 text/html Annual GYNReport ed bypatient.History: no gynecologic complaints Menstrual cycle:Normal menses Urinary symptoms:No hematuria; No incontinence Vulva:No genital lesion Vagina:Normal vaginal discharge Breast:No breast pain; No breast lump; No nipple discharge Current Contraception:Poncho h control not practiced Sexual complaints:No sexual complaints; No pain during intercourse; Normal libido Menopausal Symptoms:No menopausal symptoms; Normal vaginal lubrication Psychological symptoms:No depression; No anxiety; No PMDD Preventive measures:Encourage self breast examination; Encourage regular exercise; Encourage no tobacco use; Encourage regular mammograms starting age 40; Followed with yearly pap smears Mellissa Kinney, [facility]- [address], [place], [address], [facility] 12/27/2022 15:20:53 OBGyn Episode Ob Episode Information Episode Created Date Number of Fetuses Patient Bloodtype Patient rh Status Prepregnancy Weight lbs Domestic Partner Domestic Partner Phone Father Name Business Economist Status 12/28/19 23 1 CLOSED Fetus Data First Name Last Name Admitted to NICU Weight (g) Sex Living Outcome Pediatric Complications Fetus ID Race Codes Race Delivery Type 3175.14 4 F Full Term Vaginal Delivery Jens Calculation Initial Jens Date Initial Exam Date Initial Exam Provider Initial Ultrasound Date Last Menstrual Period Date Ultra Sound Weeks Gestation 0 Eighteen To Twenty Week Jens Update Ultra Sound Date Fundal Height At Umbil Quickening Date Ultra Sound Latest Weeks Gestation Final Jens Confirmed By Final Jens Confirmed Date Final Jens Date Ultra Sound Latest Days Gestation 0 0 Menstrual History Last Menstrual Date Menses Monthly On Bcp Conception Prior Menses Frequency Hcg Plus Date Menarche Onset Age Delivery Information Delivery Date Delivery Type Labor Anesthesia Weeks Gestation Incision Type Labor Labor Length Hrs Delivered By Post Complications Tubal Sterilization Discharge Date Comments 9 38 false Fernando Discharge Information Feeding Method Contraceptive Method Maternal HG B and HCT Levels Ob Episode Information Episode Created Date Number of Fetuses Patient Bloodtype Patient rh Status Prepregnancy Weight lbs Domestic Partner Domestic Partner Phone Father Name Business Economist Status 12/28/19 23 1 CLOSED Fetus Data First Name Last Name Admitted to NICU Weight (g) Sex Living Outcome Pediatric Complications Fetus ID Race Codes Race Delivery Type 3146.56 [id number] F Full Term Vaginal Delivery Jens Calculation Initial Jens Date Initial Exam Date Initial Exam Provider Initial Ultrasound Date Last Menstrual Period Date Ultra Sound Weeks Gestation 0 Eighteen To Twenty Week Jens Update Ultra Sound Date Fundal Height At Umbil Quickening Date Ultra Sound Latest Weeks Gestation Final Jens Confirmed By Final Jens Confirmed Date Final Jens Date Ultra Sound Latest Days Gestation 0 0 Menstrual History Last Menstrual Date Menses Monthly On Bcp Conception Prior Menses Frequency Hcg Plus Date Menarche Onset Age Delivery Information Delivery Date Delivery Type Labor Anesthesia Weeks Gestation Incision Type Labor Labor Length Hrs Delivered By Post Complications Tubal Sterilization Discharge Date Comments 9 38 false Shea Discharge Information Feeding Method Contraceptive Method Maternal HG B and HCT Levels
--- OUTSIDE RECORDS SUMMARY | 2024-10-06 22:21 | XMS_ITS | Patient Health Summary ---
Author Organization [facility] [employer] Address [address] [place] [address] Care Team Providers Care Dope And Fabric Worker Name Role Phone Maida Marie MD Primary Care Provider [phone] Note from [facility],non-owned Affiliates and Associated Physician Practices is amultiple site organization consisting of ambulatory clinics and hospital sitesin [place], [place], [place] and [place]. This disclosure is being madepursuant to the Care Everywhere program and may not contain all information available regarding this patient. Last updated 18.[facility] Allergies * Latex(Rash) -Medium Criticality * Penicillins(Rash) -Medium Criticality * Aspirin(Other,Unknown),Inactive Medications * Be aware that medications may not be up to date on this document. Alwaysverify current medications with the patient. * Uecjkqhf-Por-Wc-FA ( VITAMIN WITH IRON) tablet Take 1 tablet by mouth once daily Reasons: * Aspirin 81 MG(Started 08/26/2018) Take 2 tablets by mouth once daily 2 refills remaining Active Problems Problem Noted Date Diagnosed Date Right upper quadrant pain 09/23/2018 hydronephrosis during , antepartu m 08/26/2018 Hypertension affecting 07/24/2018 Supervision of high-risk of michelet villagran 07/24/2018 Obesity (BMI 30.0-34.9) 07/24/2018 Social History Tobacco [...] Comments Blood Pressure 136/84 09/23/2018 10:08 AM ORE BRIDGE OPERATOR Pulse 92 09/23/2018 10:08 AM ORE BRIDGE OPERATOR Temperature - - Respiratory Rate - - Oxygen Saturation - - Inhaled Oxygen Concentration - - Weight 98.4 kg (217 lb) 09/23/2018 10:08 AM ORE BRIDGE OPERATOR Height 160 cm (5' 3 ) 09/23/2018 10:08 AM ORE BRIDGE OPERATOR Body Mass Index 38.44 09/23/2018 10:08 AM ORE BRIDGE OPERATOR Procedures * SONOGRAM - COMPLETE(Performed 09/23/2018) Performed for Supervision of high-risk of young multigravida (HCC), Obesity (BMI 30.0-34.9), Hypertension affecting in first trimester (HCC) * SONOGRAM - COMPLETE(Performed 08/26/2018) Performed for Supervision of high-risk of young multigravida (HCC), Obesity (BMI 30.0-34.9), Hypertension affecting in first trimester (HCC) * SONOGRAM - COMPLETE(Performed 07/29/2018) Performed for Hypertension affecting in first trimester (HCC), Supervision of high-risk of young multigravida (HCC) Results * SONOGRAM - COMPLETE (09/23/2018 9:24 AM ORE BRIDGE OPERATOR) Only the most recent of3 resultswithin the time period is included. Anatomical Region Laterality Modality Other 09/23/2018 9:24 AM ORE BRIDGE OPERATOR Narrative 09/23/2018 7:30 PM ORE BRIDGE OPERATOR [facility] PHONE: FAX: Pat. Name: BERNIE HERNANDEZ. No: [id number] Study Date: 09/23/2018 9:24am , Age: 13 1990, 28 Pregnancies: 2, Para 1 Height: 63 in Weight: 200 lb LMP: 03/11/2018 GA by LMP: 28w0d GA by Base: 28w0d ALYSA: 12/16/2018 GA by US: 28w1d ALYSA: 12/15/2018 GA Selected: 28w0d (LMP) ALYSA: 12/16/2018 Referring MD: Amanda Hairston MD Senior Manufacturing Technician: Racheal Castro CPT4: 16257,88541,18459 BMI: 35.42 Hist/Ind: Chronic Hypertension Obesity Part 1 of Seq. Screen completed Incomplete Anatomy MEASUREMENTS & AGE GROWTH EVALUATION Measurement GA Range Srce %for GA Ratios ----- ---- ------- BPD 7.2 cm 28w5d (19f4s-58i9i) Hadl BPD 61% FL/BPD 0.75 (0.71 - 0.87) HC 26.9 cm 29w3d (18e2n-00u3e) Hadl HC 63% FL/AC 0.24 (0.20 - 0.24) AC 22.6 cm 27w0d (15d7x-00x3h) Hadl AC 15% HC/AC 1.19 (0.99 - 1.18* FL 5.4 cm 28w3d (17j2f-69e1m) Hadl FL 46% CI 0.74 (0.70 - 0.86) HL 4.7 cm 27w6d (28i4d-26r5t) Steven OLIVA 48% GA for sonogram 28w1d (41b2v-52y9h) Weight Estimate: based on (BPD,HC,AC,FL) Hadlock Weight: 1133 gm (967-1298gm) Hadl : 2lbs, 7oz Normal: 1211 gm (908-1513gm) Hadl Wt% 31% for 28w0d Heart Rate: 153 bpm Amniotic Fluid Index: 14.2cm (09.4-22.8) Q1: 3.9cm Q2: 3.2cm Q3: 3.5cm Q4: 3.6cm Biophysical Profile: 03/18 Breathin Tone: 2 Movement: 2 AFV: 2 EVAL, PLACENTA Presentation: cephalic Placenta: posterior Heart Rate: 153 bpm Amniotic Fluid Volume: normal DOPPLER Umbilical - Mid Cord S/D 2.88(2.09 - 4.36) PI 0.95 (0.75 - 1.35) Anatomy!Normal!Abnormal!Suboptimal!Prev. Seen!Comments Cranium ! x ! ! ! x ! Mdl (CSP/Thal! ! ! ! x ! Ventricles ! ! ! ! x ! Choroid Plexu! ! ! ! x ! Cerebellum ! ! ! ! x ! Cisterna M. ! ! ! ! x ! Nuchal Fold ! ! ! ! x ! Profile ! ! ! ! x ! Nasal Bone ! ! ! ! x ! Lip ! ! ! ! x ! Spine ! x ! ! ! ! Lungs ! ! ! ! x ! 4 Chamber Hea! ! ! ! x ! LVOT ! ! ! ! x ! RVOT ! ! ! ! x ! 3 Vessel View! ! ! ! x ! Cross-over ! ! ! ! x ! Ductal Arch ! ! ! ! x ! Aortic Arch ! x ! ! ! ! Caval View ! ! ! ! x ! Situs ! ! ! ! x ! Diaphragm ! ! ! ! x ! Stomach ! x ! ! ! x ! Bowel ! ! ! ! x ! Kidneys ! x ! ! ! ! Bladder ! x ! ! ! x ! 3 Vessel Cord! ! ! ! x ! Cord In! ! ! ! x ! Upper Extremi! ! ! ! x ! Hands ! ! ! ! x ! Lower Extreme! ! ! ! x ! Feet ! ! ! ! x ! External Yadira! ! ! ! x ! CLINICAL SUMMARY Study Number: 3 Follow-up was performed to complete the anatomical screen reassess growth. The measurements today are consistent with less than expected growth. The ALYSA selected is based on LMP and prior ultrasound ( confirmed ). The abdominal circumference is greater than the 10th percentile which is reassuring. The previously demonstrated unilateral renal pelvis dilation is now resolved. The amniotic fluid volume is normal. The placenta is posterior. No major malformations are seen, within the limitations of the exam. Ultrasound does not allow detection of all structural or chromosomal abnormalities. ultrasound is limited in the ability to detect or exclude small, cardiac, septal defects. Umbilical artery interrogation was performed to exclude severe growth restriction. IMPRESSION: Single, live IUP at 28w0d Overall appropriate growth with reduced growth velocity normal amniotic fluid Completed anatomical screen without demonstrated major malformations Resolved unilateral urinary tract dilation Unremarkable umbilical artery Dopplers Reassuring testing RECOMMEND: Follow up ultrasound to reassess growth in 4 weeks Thank you for allowing us the opportunity to care for your patient. Keely Fox MD <Electronic Signature> 09/23/2018 07:30pm R Elvis Milton MD M ORDERABLES Care Teams Dope And Fabric Worker Relationship Specialty Start Date End Date Maida Marie MD [facility] [place] [address] [place] [address] PCP - General Family Medicine 07/14/18
[2024-10-06 22:31] VITALS: BP 116/73; PULSE 62; RESP 18; TEMP 35.7; O2SAT 99
--- NOTE | 2024-10-06 22:34 | ED.ANXIETY ---
HPI - Anxiety General Chief Complaint: Anxiety Stated Complaint: CHEST PAIN Time Seen by Provider: 10/06/24 22:33 Source: patient Mode of arrival: ambulatory Limitations: no limitations History of Present Illness HPI narrative: 34-year-old female with a history of smoking, pancreatitis, GERD,anxiety/panic attacks presents to the ED with acute onset -- anterior chest pain/ Substernal chest pain. No radiation of the pain. Pain resolved by the time she came to the ED. -- patient started drinking after she got out from work on an empty stomach. patient started drinking around 8:00 p.m. -- Shortness of breath patient has had multiple prior episodes of chest pain and shortness of breath with spontaneous resolution. She has been diagnosed with panic attacks. She had been prescribed Xanax which she has not had in a while. patient has been having a large amount of emotional stress with of multiple family members over the past few years. MD complaint: anxiety Onset (ago): hour(s) ( 1 hour) Symptoms: chest pain Severity: moderate Quality: constant Place: outdoors History of similar episodes: Yes Provoking factors: emotional stress Relieving factors: nothing and medication Associated symptoms: chest pain, shortness of breath and palpitations Related Data Allergies Allergy/AdvReac Type Severity Reaction Status Date / Time Penicillins Allergy Intermediate Unknown Verified 10/06/24 22:32 Review of Systems Review of Systems: All systems reviewed & are unremarkable except as noted in HPI and below Constitutional: Constitutional: Reports as per HPI and Reports no additional constitutional complaints Eyes: Eyes: Reports as per HPI and Reports no additional eye complaints ENT: Reports system reviewed and no additional complaints, except as documented and Reports as per HPI Cardiovascular: Cardiovascular: Reports as per HPI, Reports no additional cardiovascular complaints and Reports chest pain Respiratory: Respiratory: Reports as per HPI, Reports no additional respiratory complaints and Reports dyspnea Gastrointestinal: Gastrointestinal: Reports as per HPI and Reports no additional gastrointestinal complaints Comments: History of gastric reflux. Multiple prior episodes of substernal burning and pain. Genitourinary: Genitourinary: Reports no additional female genitourinary complaints and Reports as per HPI Musculoskeletal: Musculoskeletal: Reports no additional musculoskeletal complaints and Reports as per HPI Integumentary/Breasts: Skin/Breast: Reports system reviewed and no additional complaints, except as docu and Reports as per HPI Neurologic: Reports system reviewed and no additional complaints, except as documented and Reports as per HPI Psychiatric: Psychiatric: Reports no additional psychiatric complaints, Reports as per HPI and Reports anxiety Endocrine: Endocrine: Reports no additional endocrine complaints and Reports as per HPI Hematologic/Lymphatic: Hematologic/Lymphatic: Reports no additional hematologic/lymphatic complaints and Reports as per HPI Allergic/Immunologic: Allergic/Immunologic: Reports no additional allergic/immunologic complaints and Reports as per HPI [facility] Past Medical History Medical History Panic attack Pancreatitis Overweight Nicotine dependence Surgical History Surgical History History of laparoscopic cholecystectomy Family History Family History Father Acute myocardial infarction Social History Social History Years smoked: 15 Smoking status: Current every day smoker Tobacco type: cigarettes Alcohol intake: current Drinks per week: 10 Substance use: current Substance use type: marijuana Last use: 06/18/2022 Lack of Transportation: No Lack of Food: Often True Current Housing: I Have Housing Concerned About Future Housing: No Difficulty Paying Gas/Electric Bills: YES Difficulty Paying for Meds: No Currently Unemployed: No Education: Associate Degree Difficulty w/ Childcare or Family Care: No Living arrangements: with family Spiritual care concerns: No Exam Narrative: vitals are stable Const: General: no acute distress Nutritional Appearance: well nourished Orientation/consciousness: patient oriented x3 Limitations: no limitations HENMT: Head: normal to inspection Ears: external ears normal Face/Nose/Sinus: Normal external nose present Face and sinus: normal facial exam Mouth: Yes Normal oral and palatal mucosa present Throat: posterior oropharynx normal Eyes: Conjunctivae: conjunctivae normal Pupils: Equal, round and reactive pupils present EOM: EOMs intact bilaterally Direct Ophthalmoscopy: no photophobia Neck: Neck: normal visual inspection, no lymphadenopathy and no meningeal signs Chest: Chest palpation & inspection: normal inspection of the chest Resp: Effort & Inspection: normal respiratory effort Auscultation: clear to auscultation bilaterally Cardio: Rate: regular rate Rhythm: regular rhythm GI: GI Palp: Yes Soft to palpation Auscultation: normal bowel sounds Other: no tenderness/ rigidity /rebound. : General: Yes no CVA tenderness Back/Spine/Pelvis: Back: no CVA tenderness Skin: General skin exam: normal color Rashes: no rashes Wounds: no wounds Neuro: General: patient oriented x3, moves all extremities, no meningeal signs, no focal motor deficits and CN's II-XI intact bilaterally Extrem: General: normal to inspection and no clubbing, cyanosis or edema Psych: Mental Status: mental status grossly normal Affect: normal affect Attitude: cooperative Course Course Emergency Course: Acute onset substernal chest pain and shortness of breath with spontaneous resolution. anxiety/panic attack gastric reflux patient stated that she had multiple such episodes in the past and was diagnosed with panic attack. She did not want any further workup at this time. Vital Signs Vital signs: Vital Signs Temperature 35.7 C L 10/06/24 22:31 Pulse Rate 62 10/06/24 22:31 Respiratory Rate 18 10/06/24 22:31 Blood Pressure 116/73 10/06/24 22:31 Pulse Oximetry 99 10/06/24 22:31 Oxygen Delivery Room Air 10/06/24 22:31 Temperature 35.7 C L 10/06/24 22:31 Pulse Rate 62 10/06/24 22:31 Respiratory Rate 18 10/06/24 22:31 Blood Pressure 116/73 10/06/24 22:31 Pulse Oximetry 99 10/06/24 22:31 Oxygen Delivery Room Air 10/06/24 22:31 MDM - Anxiety MDM Narrative Medical decision making narrative: panic attack gastric reflux Differential Diagnosis Differential diagnosis: Likely panic disorder and acute anxiety ECG Data EKG #1: ECG completion date: 10/06/24 ECG completion time: 22:28 Interpretation: sinus bradycardia with a heart rate of 58. Normal axis. No ST -T-wave changes noted. Discharge Plan Discharge Clinical Impression: Acute anxiety, Panic disorder, Gastric reflux Patient Disposition: Home, Self-Care Condition: Stable Instructions: Antibiotic Form, GERD (Gastroesophageal Reflux Disease) (ED), Panic Attack (ED) Patient Language: Marshallese Prescriptions: New alprazolam [Xanax] 0.5 mg tablet 0.5 mg PO BID MDD 1 mg PRN (Reason: anxiety) Qty: 7 0RF pantoprazole [Protonix] [address] for susp in packet 40 mg PO DAILY Qty: 30 0RF No Action alprazolam 0.5 mg tablet 0.5 mg PO BID PRN (Reason: anxiety) Qty: 60 0RF venlafaxine 75 mg capsule,extended release 24hr See Rx Instructions .ROUTE .COMPLEX Qty: 90 0RF Dose Instruction: TAKE 1 CAPSULE BY MOUTH EVERY DAY Rx Instructions: TAKE 1 CAPSULE BY MOUTH EVERY DAY Follow-up/Referrals: Griselda Welch HEAD BANQUET WAITER/WAITRESS [Primary Care Provider] - Time of Disposition: 22:54
--- NOTE | 2024-10-06 22:50 | PC.NURSE ---
Cool cloth placed on pt's forehead. Controlled, slow breathing technique encouraged. Talked with pt regarding stressors that she currently is experiencing in her life and ways that she can help deal with the stress. Exercise, relaxation techniques, therapy, and medications were all discussed. Pt feels that she has the resources to implement these strategies.
--- OUTSIDE RECORDS SUMMARY | 2024-10-06 22:57 | XMS_ITS | Patient Health Summary ---
Author Organization [facility] [employer] Address [address] [place] [address] Care Team Providers Care Technical Healthcare Consultant Name Role Phone Maida Marie MD Primary Care Provider [phone] Note from [facility],non-owned Affiliates and Associated Physician Practices is amultiple site organization consisting of ambulatory clinics and hospital sitesin [place], [place], [place] and [place]. This disclosure is being madepursuant to the Care Everywhere program and may not contain all information available regarding this patient. Last updated 18.[facility] Allergies * Latex(Rash) -Medium Criticality * Penicillins(Rash) -Medium Criticality * Aspirin(Other,Unknown),Inactive Medications * Be aware that medications may not be up to date on this document. Alwaysverify current medications with the patient. * Mzpryvtp-Fss-Dl-FA ( VITAMIN WITH IRON) tablet Take 1 [...] Comments Blood Pressure 136/84 09/23/2018 10:08 AM WIRED MUSIC OPERATOR Pulse 92 09/23/2018 10:08 AM WIRED MUSIC OPERATOR Temperature - - Respiratory Rate - - Oxygen Saturation - - Inhaled Oxygen Concentration - - Weight 98.4 kg (217 lb) 09/23/2018 10:08 AM WIRED MUSIC OPERATOR Height 160 cm (5' 3 ) 09/23/2018 10:08 AM WIRED MUSIC OPERATOR Body Mass Index 38.44 09/23/2018 10:08 AM WIRED MUSIC OPERATOR Procedures * SONOGRAM - COMPLETE(Performed 09/23/2018) [...] * SONOGRAM - COMPLETE (09/23/2018 9:24 AM WIRED MUSIC OPERATOR) Only the most recent of3 resultswithin the time period is included. Anatomical Region Laterality Modality Other 09/23/2018 9:24 AM WIRED MUSIC OPERATOR Narrative 09/23/2018 7:30 PM WIRED MUSIC OPERATOR [facility] PHONE: FAX: Pat. Name: BERNIE HERNANDEZ. No: [id number] Study Date: 09/23/2018 9:24am , Age: 11 1990, 28 Pregnancies: 2, Para 1 Height: 63 in Weight: 200 lb LMP: 03/11/2018 GA by LMP: 28w0d GA by Base: 28w0d ALYSA: 12/16/2018 GA by US: 28w1d ALYSA: 12/15/2018 GA Selected: 28w0d (LMP) ALYSA: 12/16/2018 Referring MD: Amanda Hairston MD Procurement Agent: Racheal Castro CPT4: [id number] BMI: 35.42 Hist/Ind: Chronic Hypertension Obesity Part 1 of Seq. Screen completed Incomplete Anatomy MEASUREMENTS & AGE GROWTH EVALUATION Measurement GA Range Srce %for GA Ratios ----- ---- ------- BPD 7.2 cm 28w5d (55n4t-15g3g) Hadl BPD 61% FL/BPD 0.75 (0.71 - 0.87) HC 26.9 cm 29w3d (54u7s-95z9o) Hadl HC 63% FL/AC 0.24 (0.20 - 0.24) AC 22.6 cm 27w0d (08n5i-55p7p) Hadl AC 15% HC/AC 1.19 (0.99 - 1.18* FL 5.4 cm 28w3d (33y4a-53z4b) Hadl FL 46% CI 0.74 (0.70 - 0.86) HL 4.7 cm 27w6d (29t5i-17l0r) Steven OLIVA 48% GA for sonogram 28w1d (69q8s-16b8g) Weight Estimate: based on (BPD,HC,AC,FL) Hadlock Weight: [...] Elvis Milton MD M ORDERABLES Care Teams Technical Healthcare Consultant Relationship Specialty Start Date End Date Maida Marie MD [facility] [place] [place] [address] PCP - General Family Medicine 07/14/18
--- OUTSIDE RECORDS SUMMARY | 2024-10-06 22:57 | XMS_ITS | Clinical Summary ---
Author Organization [facility] [employer] Address [address] [place] [address] Care Team Providers Care Hot Frame Tender Name Role Phone Maida Marie MD Primary Care Provider [phone] Source Comments [facility] [employer],non-owned Affiliates and Associated Physician Practices is amultiple site organization consisting of ambulatory clinics and hospital sitesin [place], [place], [place] and [place]. This disclosure is being madepursuant to the Care Everywhere program and may not contain all information available regarding this patient. Last updated 18.[facility] [employer] Allergies Active Allergy Reactions Criticality Noted Date Comments Latex Rash Medium 07/29/2018 Penicillins Rash Medium 07/29/2018 Dx in childhood Medications * Be aware that medications may not be up to date on this document. Alwaysverify current medications with the patient. Medication Sig Dispensed Refills Start Date End Date Status Ypyiqyhy-Kqm-Gg-FA ( VITAMIN WITH IRON) tabletIndications:Pr egnancy Take [...] Comments Blood Pressure 136/84 09/23/2018 10:08 AM MECHANIC HELPER Pulse 92 09/23/2018 10:08 AM MECHANIC HELPER Temperature - - Respiratory Rate - - Oxygen Saturation - - Inhaled Oxygen Concentration - - Weight 98.4 kg (217 lb) 09/23/2018 10:08 AM MECHANIC HELPER Height 160 cm (5' 3 ) 09/23/2018 10:08 AM MECHANIC HELPER Body Mass Index 38.44 09/23/2018 10:08 AM MECHANIC HELPER Plan of Treatment Health Maintenance Due Date [...] age to complete this topic Care Teams Hot Frame Tender Relationship Specialty Start Date End Date Maida Marie MD [address] [place] [id number] PCP - General Family Medicine 07/14/18
--- OUTSIDE RECORDS SUMMARY | 2024-10-06 22:57 | XMS_ITS | Referral Summary ---
Author Organization [facility] [employer] Address [address] [place] [address] Care Team Providers Care Tool And Fixture Repairer Name Role Phone Maida Marie MD Primary Care Provider [phone] Source Comments [facility],non-owned Affiliates and Associated Physician Practices is amultiple site organization consisting of ambulatory clinics and hospital sitesin [place], [place], [place] and [place]. This disclosure is being madepursuant to the Care Everywhere program and may not contain all information available regarding this patient. Last updated 18.[facility] Allergies Active Allergy Reactions Criticality Noted Date Comments Latex Rash Medium 07/29/2018 Penicillins Rash Medium 07/29/2018 Dx in childhood Medications * Be aware that medications may not be up to date on this document. Alwaysverify current medications with the patient. Medication Sig Dispensed Refills Start Date End Date Status Vgaamxtl-Chd-Ox-FA ( VITAMIN WITH IRON) tabletIndications:Pr egnancy Take [...] Comments Blood Pressure 136/84 09/23/2018 10:08 AM LACE BURN OUT TENDER Pulse 92 09/23/2018 10:08 AM LACE BURN OUT TENDER Temperature - - Respiratory Rate - - Oxygen Saturation - - Inhaled Oxygen Concentration - - Weight 98.4 kg (217 lb) 09/23/2018 10:08 AM LACE BURN OUT TENDER Height 160 cm (5' 3 ) 09/23/2018 10:08 AM LACE BURN OUT TENDER Body Mass Index 38.44 09/23/2018 10:08 AM LACE BURN OUT TENDER Plan of Treatment Not on file Care Teams Tool And Fixture Repairer Relationship Specialty Start Date End Date Maida Marie MD [address] [place] [phone] PCP - General Family Medicine 07/14/18
== END 2024-10-06 23:15 | disposition home or self-care (01) ==
LOC: CHSED 22:55
PROVIDERS: Emergency Provider Internal Medicine Critical Care Medicine; PCP Nurse Practitioner Family
DX: F41.9 Anxiety disorder, unspecified (principal); K21.9 Gastro-esophageal reflux disease without esophagitis; F17.210 Nicotine dependence, cigarettes, uncomplicated
CPT/HCPCS: 93005; 99283

== ENCOUNTER 2025-04-30 11:24 | Emergency (ER) | payer SELFPAY ==
--- NOTE | ~2025-04-30 | XR_ITS ---
Examination: XR chest 1V portable Clinical History: chest pain, cough and congestion x1 week; worsening Comparison: X-rays 2018 Technique: Portable AP Findings: Heart size normal. Lungs clear. No acute bony abnormality. IMPRESSION: 1. No acute cardiopulmonary findings given portable technique. Reviewed, dictated and finalized at location R.
[2025-04-30 11:24] VITALS: BP 166/114; PULSE 98; RESP 16; TEMP 35.9; O2SAT 95
--- OUTSIDE RECORDS SUMMARY | 2025-04-30 11:26 | XMS_ITS | Clinical Summary ---
Author Organization [facility] Address [address] [place] [address] Care Team Providers Care Workers' Compensation Claims Supervisor Name Role Phone Maida Marie MD Primary Care Provider [phone] [facility],non-owned Affiliates and Associated Physician Practices is amultiple site organization consisting of ambulatory clinics and hospital sitesin [place], [place], [place] and [place]. This disclosure is being madepursuant to the Care Everywhere program and may not contain all information available regarding this patient. Last updated 18.[facility] Allergies Active Allergy Reactions Criticality Noted Date Comments Latex Rash Medium 07/29/2018 Penicillins Rash Medium 07/29/2018 Dx in childhood Medications * Be aware that medications may not be up to date on this document. Alwaysverify current medications with the patient. [id number] ( VITAMIN WITH IRON) tabletIndicatio ns: Take 1 tablet by mouth once daily Reasons: Active Aspirin 81 MG Take 2 tablets by mouth once daily 60 tablet 2 9 Active Active Problems Problem Noted Date Diagnosed [...] Recommend weight reduction Supervision of high-risk of young bhaskar igravida 07/24/2018 Overview (10/02/2018): Summary: Dating: LMP within [...] drink = 0.6 oz pur e alcohol) Comments No Sex and Gender Information Value Date Recorded Sex Assigned at Not on file Legal Sex Female 7:34 AM [employer] Gender Identity Not on file Sexual Orientation Not on file Last Filed Vital Signs Vital Sign Reading Time Taken Comments Blood Pressure 136/84 09/23/2018 10:08 AM [employer] Pulse 92 09/23/2018 10:08 AM [employer] Temperature - - Respiratory Rate - - Oxygen Saturation - - Inhaled Oxygen Concentration - - Weight 98.4 kg (217 lb) 09/23/2018 10:08 AM [employer] Height 160 cm (5' 3) 09/23/2018 10:08 AM [employer] Body Mass Index 38.44 09/23/2018 10:08 AM [employer] Plan of Treatment Health Maintenance Due Date Last Done Comments HIV SCREENING 2007 HEPATITIS C SCREENING 06/24/2010 DTAP/TDAP/TD VACCINES (1 - Tdap) 2011 HEPATITIS B VACCINE (1 of 3 - 19+ 3-dose series) 2011 HPV VACCINE (1 - 3-dose SCDM series) 2019 DEPRESSION SCREENING 08/11/2024 COVID-19 VACCINE (1 - 2023-2 5 season) 2025 INFLUENZA VACCINE (#1) 2025 ZOSTER VACCINE (1 of 2) 2042 HIB VACCINE Aged Out No longer eligi ble based on patient's age to complete this topic MENINGOCOCCAL (Group B) VACC INE SHARED DECISION-MAKING Aged Out No longer eligibl e based on patient's age to complete this topic MENINGOCOCCAL GROUPS A/C/Y/W VACCINE Aged Out No longer eligible b ased on patient's age to complete this topic PNEUMOCOCCAL VACCINE Aged Out No long er eligible based on patient's age to complete this topic Insurance [place] [address] [facility] [place] [address] Care Teams Workers' Compensation Claims Supervisor Relationship Specialty Start Date End Date Maida Marie MD [address] [place] [id number] PCP - General Family Medicine 07/14/18
--- NOTE | 2025-04-30 12:13 | ED_ITS ---
HPI - URI/Sore Throat General Chief Complaint: Upper Respiratory Infection Stated Complaint: cough Source: patient Mode of arrival: ambulatory Limitations: no limitations History of Present Illness HPI Narrative: this is a 34-year-old female with no significant past medical history presents with cough and congestion no fever chills no nausea vomiting no chest pain no audible wheezing for the last week, has sinus congestion and upper airway congestion. Has a rash on her right upper thigh area that is round proximally 2cm in diameter with a central sparing with no drainage no itching. MD elicited complaint: cough and nasal congestion Onset (ago): day(s) Consistency: constant Severity: mild Description of mucous: clear Able to tolerate fluids by mouth: Yes Related Data Home Medications ?Medication ?Instructions ?Recorded ?Confirmed ?Last Taken ?Type esomeprazole magnesium 20 mg 20 mg PO DAILY 12/21/24 Unknown History capsule,delayed release (Nexium 24HR) Allergies Allergy/AdvReac Type Severity Reaction Status Date / Time Penicillins Allergy Intermediate Unknown Verified 04/30/25 11:32 Review of Systems Review of Systems: All systems reviewed & are unremarkable except as noted in HPI and below PMFSH Past Medical History Medical History Panic attack Pancreatitis Overweight Nicotine dependence Surgical History Surgical History History of laparoscopic cholecystectomy Family History Family History Father Acute myocardial infarction Social History Social History Years smoked: 15 Smoking status: Current every day smoker Tobacco type: cigarettes Alcohol intake: current Drinks per week: 10 Substance use: current Substance use type: marijuana Last use: 06/18/2022 Lack of Transportation: No Lack of Food: Often True Current Housing: I Have Housing Concerned About Future Housing: No Difficulty Paying Gas/Electric Bills: YES Difficulty Paying for Meds: No Currently Unemployed: No Education: Associate Degree Difficulty w/ Childcare or Family Care: No Living arrangements: with family Spiritual care concerns: No Exam 2 Const: General: healthy appearing, no acute distress and alert Nutritional Appearance: well nourished Limitations: no limitations HENMT: Head: normal to inspection Eyes: Conjunctivae: conjunctivae normal Neck: Neck: normal visual inspection, no lymphadenopathy and no meningeal signs Chest: Chest palpation & inspection: normal inspection of the chest Resp: Effort & Inspection: normal respiratory effort Auscultation: clear to auscultation bilaterally Cardio: Rate: regular rate Rhythm: regular rhythm GI: GI Palp: Yes Soft to palpation Auscultation: normal bowel sounds : General: Yes bladder normal to palpation Back/Spine/Pelvis: Back: no CVA tenderness Skin: Wounds: wounds noted Neuro: General: patient oriented x3, moves all extremities and no meningeal signs Extrem: General: normal to inspection, no clubbing, cyanosis or edema and no pedal edema Course Course Emergency Course: X-ray performed shows no acute cardiopulmonary abnormalities,: RSV and influenza reviewed and negative will send antibiotic patient's local pharmacy for upper respiratory tract infection and cream for ringworm. Vital Signs Vital signs: Vital Signs Temperature 35.9 C L 04/30/25 11:24 Pulse Rate 98 04/30/25 11:24 Respiratory Rate 16 04/30/25 11:24 Blood Pressure 166/114 H 04/30/25 11:24 Pulse Oximetry 95 04/30/25 11:24 Oxygen Delivery Room Air 04/30/25 11:24 Temperature 35.9 C L 04/30/25 11:24 Pulse Rate 98 04/30/25 11:24 Respiratory Rate 16 04/30/25 11:24 Blood Pressure 166/114 H 04/30/25 11:24 Pulse Oximetry 95 04/30/25 11:24 Oxygen Delivery Room Air 04/30/25 11:24 MDM - URI/Sore Throat Lab Data Labs: Lab Results 04/30/25 Range/Units 11:46 Influenza A (RT-PCR) Pending Influenza B (RT-PCR) Pending RSV (RT-PCR) Pending SARS-CoV-2 RNA (RT-PCR) Pending Critical Care Time Critical Care Time Critical Care Time: No Discharge Plan Discharge Clinical Impression: Ringworm Upper respiratory infection Qualifiers: URI type: unspecified URI Qualified Code(s): J06.9 - Acute upper respiratory infection, unspecified Patient Disposition: Home Condition: Stable Instructions: Antibiotic Form, Upper Respiratory Infection (ED), Skin Yeast Infection (ED) Additional Instructions: advised patient to take medication as prescribed and to follow with primary symptoms persist or worsen. Patient Language: Rwandan Prescriptions: New clotrimazole 1 % ointment 1 applic topical BID 28 Days Qty: 56.7 0RF azithromycin [Zithromax Z-Tacho] 250 mg tablet See Rx Instructions .ROUTE .COMPLEX Qty: 6 0RF Rx Instructions: For 250 mg dose pack: take 500 mg today (day 1), then 250 mg for 4 days (days 2-5) benzonatate 200 mg capsule 200 mg PO TID Qty: 20 0RF No Action esomeprazole magnesium [Nexium 24HR] 20 mg capsule,delayed release(DR/EC) 20 mg PO DAILY alprazolam [Xanax] 0.5 mg tablet 0.5 mg PO BID MDD 1 mg PRN (Reason: anxiety) Qty: 60 0RF venlafaxine 75 mg capsule,extended release 24hr See Rx Instructions .ROUTE .COMPLEX Qty: 90 3RF Dose Instruction: TAKE 1 CAPSULE BY MOUTH EVERY DAY Rx Instructions: TAKE 1 CAPSULE BY MOUTH EVERY DAY Follow-up/Referrals: Sylvain Wong DO [Primary Care Provider, Family Practice]
[2025-04-30 12:27] LABS: Influenza A QL RT-PCR Negative (Negative); Influenza B QL RT-PCR Negative (Negative); RSV RNA, RT-PCR Negative (Negative); SARS-CoV-2 RNA PCR Negative (Negative)
[2025-04-30 12:37] VITALS: BP 138/89; PULSE 89; RESP 16; TEMP 36.6; O2SAT 95
== END 2025-04-30 12:37 | disposition home or self-care (01) ==
PROVIDERS: Emergency Provider Emergency Medicine; PCP Family Medicine
DX: B35.9 Dermatophytosis, unspecified (principal); J06.9 Acute upper respiratory infection, unspecified; F17.210 Nicotine dependence, cigarettes, uncomplicated; Z20.822 Contact with and (suspected) exposure to COVID-19
CPT/HCPCS: 71045; 87637; 99283